=== PATIENT | male | born 1965 | race Caucasian/White ===

== ENCOUNTER 2023-09-10 08:28 | Emergency (ER) | payer OTHER, SELFPAY ==
--- NOTE | ~2023-09-10 | XR_ITS ---
EXAMINATION: XR chest 2V DATE: 09/10/2023 08:53 INDICATION: Cough. Left lower lobe crackles. TECHNIQUE: Frontal and lateral views of the chest were obtained. COMPARISON: None. FINDINGS: There are airspace opacities in the lower lung zones. No pleural effusion or pneumothorax. The heart size is normal. IMPRESSION: 1. Airspace opacities in the lower lung zones, consistent with atelectasis versus pneumonia. 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 Airspace opacities in the lower lung zones, consistent with atelectasis vers us pneumonia.
--- NOTE | 2023-09-10 08:36 | ED.URI ---
HPI - URI/Sore Throat General Chief Complaint: Upper Respiratory Infection Stated Complaint: head cold,can't breath Time Seen by Provider: 09/10/23 08:36 Source: patient Mode of arrival: ambulatory Limitations: no limitations History of Present Illness HPI Narrative: Celestino is a 57-year-old male patient presenting to the clinic today with complaints of head congestion, headache, body aches, sinus drainage, slight shortness of breath, and cough. Reports symptoms are worse when he lies flat- states, I sound like Aissatou Obando . Symptoms have been going on for 3 days. No known fever or chills. MD elicited complaint: cough, rhinorrhea, nasal congestion and other Related Data Home Medications Medication Instructions Recorded Confirmed lurasidone 120 mg tablet (Latuda) 120 mg PO DAILY 09/10/23 09/10/23 Allergies Allergy/AdvReac Type Severity Reaction Status Date / Time No Known Allergies Allergy Verified 09/10/23 08:36 Review of Systems Review of Systems: Pertinent positives per HPI. Patient denies any fever, chills, rash, visual changes, dizziness, chest pain, palpitations, nausea, vomiting, diarrhea, constipation, abdominal pain, or any urinary issues. PMFSH Comments At the time of my signature, I reviewed and agree with the nursing past medical, surgical, social, and family history. There is no relevant family history pertinent to the patient complaint. Exam Narrative: General: Well-developed, well nourished, in no apparent distress Head: Normocephalic, atraumatic Eyes: Pupils equally round and reactive to light bilaterally, EOM intact, sclera and conjunctive clear, no discharge, lids normal Ears: TMs intact and clear, ear canals clear, no drainage, grossly hearing normal. Nose: Nares patent, clear nasal discharge, no inflammation, no sinus tenderness. Mouth: Oral pharynx without lesions or masses, good dentition, MMM. Neck: Supple, trachea midline, no enlargement of anterior or posterior cervical nodes, no thyroid masses or goiter palpable. Cardio: Regular rate and rhythm, s1 and s2 normal, no murmur appreciated. Resp: Crackles heard in the left lower lung bases, no rhonchi, wheezing or rubs Course Course Emergency Course: Portions of this record may have been created with voice recognition software. Level of Care: Express Care Visit Vital Signs Vital signs: Vital signs reviewed MDM - URI/Sore Throat MDM Narrative Medical decision making narrative: At the time of visit patient is resting comfortably on the exam table. Patient appears to be nontoxic. COVID and influenza testing was performed. Chest x-ray was performed supportive measures were discussed with the patient and they voiced understanding discharge instructions and agrees to treatment plan. Return precautions reviewed Differential Diagnosis Differential diagnosis: Likely upper respiratory infection, otitis media, sinusitis, viral infection, bronchitis, influenza, pharyngitis and other (COVID, pneumonia) Imaging Data Radiologist's impression: ITS Impressions Chest X-Ray 09/10/23 08:53 IMPRESSION: 1. Airspace opacities in the lower lung zones, consistent with atelectasis versus pneumonia. Discharge Plan Discharge Clinical Impression: Pneumonia Qualifiers: Pneumonia type: due to unspecified organism Laterality: bilateral Lung location: lower lobe of lung Qualified Code(s): J18.9 - Pneumonia, unspecified organism Upper respiratory infection Qualifiers: URI type: unspecified URI Qualified Code(s): J06.9 - Acute upper respiratory infection, unspecified Patient Disposition: Home, Self-Care Condition: Stable Instructions: Antibiotic Form, Upper Respiratory Infection (ED), Pneumonia (ED) Additional Instructions: Chest x-ray shows probable atelectasis versus pneumonia and bilateral lower bases COVID and influenza testing was negative in the clinic today. Take prescription medications only as pr
[2023-09-10 08:44] VITALS: BP 126/90; PULSE 108; RESP 16; TEMP 36.8; O2SAT 95
== END 2023-09-10 09:04 | disposition home or self-care (01) ==
PROVIDERS: Emergency Provider Nurse Practitioner Family
DX: J18.9 Pneumonia, unspecified organism (principal); J06.9 Acute upper respiratory infection, unspecified; Z20.822 Contact with and (suspected) exposure to COVID-19; F31.9 Bipolar disorder, unspecified
CPT/HCPCS: 71046; 87426; 87804; 99213; C9803; G0463